=== PATIENT | female | born 1995 | race Caucasian/White ===

== ENCOUNTER 2021-12-26 12:42 | Outpatient (CLI) | payer BC | END 2021-12-26 12:43 | disposition home or self-care (01) | LOC: BICULT 12:42 | PROVIDERS: ATTEND Internal Medicine Gastroenterology | DX: R10.11 Right upper quadrant pain (principal); R10.13 Epigastric pain; R14.0 Abdominal distension (gaseous) | CPT/HCPCS: 76705 ==

== ENCOUNTER 2022-01-10 07:53 | Outpatient (CLI) | payer BC | END 2022-01-10 07:54 | disposition home or self-care (01) | LOC: BICCT 07:53 | PROVIDERS: ATTEND Internal Medicine Gastroenterology | DX: N28.9 Disorder of kidney and ureter, unspecified (principal); N28.89 Other specified disorders of kidney and ureter | CPT/HCPCS: 74170 ==

== ENCOUNTER 2022-07-16 07:34 | Outpatient (CLI) | payer BC | END 2022-07-16 07:35 | disposition home or self-care (01) | LOC: BICULT 07:34 | PROVIDERS: ATTEND Internal Medicine Gastroenterology | DX: D17.71 Benign lipomatous neoplasm of kidney (principal); N28.9 Disorder of kidney and ureter, unspecified | CPT/HCPCS: 76700 ==

== ENCOUNTER 2024-12-17 08:55 | Outpatient (CLI) | payer OTHER | END 2024-12-17 08:56 | disposition home or self-care (01) | LOC: ULT 08:55 | PROVIDERS: ATTEND Nurse Practitioner Family | DX: D17.71 Benign lipomatous neoplasm of kidney (principal) | CPT/HCPCS: 76770 ==